=== PATIENT | female | born 1990 | race Caucasian/White ===

== ENCOUNTER 2017-05-17 23:43 | Emergency (ER) | payer SELFPAY ==
[2017-05-18] MEDS ORDERED: HYDROCODONE/ACETAMINOPHEN 5-325 MG TABLET PO ONE (00:32)
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
[2017-05-18] MEDS ORDERED: HYDROCODONE/ACETAMINOPHEN 5-325 MG (6 TAB/ER DISP) PO PRN (02:11)
[2017-05-18 02:12] VITALS: BP 104/77
== END 2017-05-18 02:15 | disposition home or self-care (01) ==
LOC: ER 23:43
DX: S06.0X1A Concussion with loss of consciousness of 30 minutes or less, initial encounter (principal); M54.2 Cervicalgia; R51 Headache; R55 Syncope and collapse; Y08.89XA Assault by other specified means, initial encounter
CPT/HCPCS: 99284; 70450; 72125; L0172